=== PATIENT | female | born 1965 | race Caucasian/White ===

== ENCOUNTER → 2017-05-04 17:27 | Outpatient (CLI) | payer MEDICAID, SELFPAY | PROVIDERS: Visit Provider Nurse Practitioner Women's Health | DX: N89.8 Other specified noninflammatory disorders of vagina (principal) | CPT/HCPCS: 87070; 87205 ==

== ENCOUNTER → 2017-05-11 07:40 | Outpatient (CLI) | payer MEDICAID, SELFPAY ==
--- NOTE | 2017-05-11 07:43 | US_ITS ---
STUDY: ULTRASOUND OF THE FEMALE PELVIS - COMPLETE REASON FOR EXAM: Female, 51 years old. Abnormal bleeding LMP: TECHNIQUE: Transabdominal and Transvaginal TECHNICAL QUALITY: Adequate. COMPARISON: None. FINDINGS: The uterus is retroflexed and is in a midline position. The uterus measures 8.5X5.3X3.7 cm. There is a Nabothian cyst of the cervix. The endometrium measures 7.1 mm in thickness, and is hyperechoic. There is no demonstrated endometrial mass. There is no demonstrated myometrial mass. I.U.D. - The patient does not have an I.U.D. The right ovary is visualized. The right ovary measures 3.2X2.5X2.7 cm. There is no right ovarian cyst or ovarian mass. Calcifications visualized in the right ovary. There is normal arterial and normal venous vascularity. The left ovary is visualized. The left ovary measures 3.8X2.4X2.1 cm. There is no left ovarian cyst or ovarian mass. There is no visualized left adnexal mass or complex lesion. There is normal arterial and normal venous vascularity. There is no fluid in the cul-de-sac. Polycystic ovary disease: No. US/Pelvic (Non ) IMPRESSION: There is a thickened endometrial stripe. The patient is postmenopausal this is abnormal. There are Nabothian cysts of the cervix. Electronically Signed: Alan Coleman MD at 16:56 EDT , Service support ,
--- NOTE | 2017-05-11 07:43 | US_ITS ---
STUDY: ULTRASOUND OF THE FEMALE PELVIS - COMPLETE REASON FOR EXAM: Female, 51 years old. Abnormal bleeding LMP: TECHNIQUE: Transabdominal and Transvaginal TECHNICAL QUALITY: Adequate. COMPARISON: None. FINDINGS: The uterus is retroflexed and is in a midline position. The uterus measures 8.5X5.3X3.7 cm. There is a Nabothian cyst of the cervix. The endometrium measures 7.1 mm in thickness, and is hyperechoic. There is no demonstrated endometrial mass. There is no demonstrated myometrial mass. I.U.D. - The patient does not have an I.U.D. The right ovary is visualized. The right ovary measures 3.2X2.5X2.7 cm. There is no right ovarian cyst or ovarian mass. Calcifications visualized in the right ovary. There is normal arterial and normal venous vascularity. The left ovary is visualized. The left ovary measures 3.8X2.4X2.1 cm. There is no left ovarian cyst or ovarian mass. There is no visualized left adnexal mass or complex lesion. There is normal arterial and normal venous vascularity. There is no fluid in the cul-de-sac. Polycystic ovary disease: No. US/Transvaginal Non- IMPRESSION: There is a thickened endometrial stripe. The patient is postmenopausal this is abnormal. There are Nabothian cysts of the cervix. Electronically Signed: Alan Coleman MD at 16:56 EDT , Service support ,
== END ==
PROVIDERS: Visit Provider Nurse Practitioner Women's Health
DX: N92.6 Irregular menstruation, unspecified (principal)
CPT/HCPCS: 76830; 76856; 93976

== ENCOUNTER → 2017-06-06 09:51 | Outpatient (CLI) | payer MEDICAID, SELFPAY ==
--- NOTE | 2017-06-06 | ASPOS_PTH ---
PATIENT: JUNI DENNIS LOC: [facility] U#:[id number] AGE/SX: 59/F ROOM: RE06/06/[address]: Dr. Nj Marsh MD : 1965 BED: DIS: SPEC #: [id number] RECD: 06/06/17 12:19 STATUS: ALESSANDRA KENYA #: [id number] TURNER: 06/06/17 00:[address]: Nj Marsh DEPT: CYTOLOGY RECD BY: Rolo Zurita ENTERED: 06/06/17 12:20 SP TYPE: ASP HERE OTHR DR: Out of Town Doctor Tissues: Neck, NOS Procedures: Surgery Specimen Level IV Cytology Other Fine Needle Asp on Site HEADER OPERATION: FNA left upper mid neck mass PRE-OP DIAGNOSIS: Left upper mid neck mass TISSUE SUBMITTED: FNA left upper mid neck mass, smear and fluid for cytology DIAGNOSIS CYTOLOGY Fine needle aspiration, left upper neck mass (cytospin and cell block): Polymorphous lymphocytes present. No evidence of malignancy. AM:leti 06/07/17 COMMENT The specimen is evaluated at the time of FNA by Dr. Peralta. Immediate Evaluation = Polymorphous lymphocytes present. Immunohistochemistry ([id number]) supports the above diagnosis and reveals mostly small T lymphocytes. A lymphoid malignancy is not identified. Sample for Flow cytometric analysis yielded low viability specimen and phenotyping was not performed. CYTOLOGY STUDY Slides are reviewed. CYTOLOGY GROSS Received is 0.2 ml of reddish-quintero fluid labeled with the patient's name, and designated FNA left upper mid neck mass. Three imprints and two paps are made from the submitted fluid and the rest is added to CytoLyt for cell block preparation. Submitted for cytology study. / AM:leti 06/06/17 TC:5 CPT: 75676, 74694, 36414, 43682
--- NOTE | 2017-06-06 | IMM_PTH ---
PATIENT: JUNI DENNIS LOC: [facility] U#:[id number] AGE/SX: 59/F ROOM: RE06/06/[address]: Dr. Nj Marsh MD : 1965 BED: DIS: SPEC #: [id number] RECD: 06/07/17 12:04 STATUS: ALESSANDRA REKathryn #: [id number] TURNER: 06/06/17 00:[address]: Nj Marsh DEPT: IMMUNOHISTOCHEMISTRY RECD BY: Lima Kohli ENTERED: 06/07/17 12:05 SP TYPE: IMMUNO OTHR DR: Out of Town Doctor Tissues: Neck, NOS Procedures: CD20 (add) CD45 (add) CD5 (add) CD79A (add) CD3 (initial) PHYSICIAN & INSTITUTION [place] [id number] SPECIMEN INFORMATION: Tissue Source: FNA left upper mid neck mass Clinical Info: Left upper mid neck mass Specimen Number: [id number] CPT code: 12331, 76951 x4 METHODOLOGY: Deparaffinized sections of prefer/formalin-fixed tissue or PAP/DQ stained slides are incubated with monoclonal/polyclonal antibodies/oligonucleotide probes. Localization is made via biotin free immunoperoxidase method. Appropriate controls are performed and reacted as expected. Results on target cell population are indicated in the following table: RESULTS: ANTIBODY / CLONE RESULT CD3 (PS1) positive CD5 (SP10) negative CD20 (L26) negative CD45 (RP2/18) positive CD79a (11E3) negative These tests were developed and their performance characteristics determined by [facility]. They may not have been cleared or approved by the U.S. Food and Drug Administration. The FDA has determined that such clearance or approval is not necessary. INTERPRETATION: Left upper mid neck mass, fine needle aspiration: No evidence of lymphoproliferative disorder. AM:leti 06/08/17
== END ==
PROVIDERS: Visit Provider Otolaryngology Otolaryngology/Facial Plastic Surgery
DX: R22.1 Localized swelling, mass and lump, neck (principal)
CPT/HCPCS: 10021; 88161; 88305; 88341; 88342

== ENCOUNTER → 2017-07-13 11:31 | Outpatient (CLI) | payer MEDICAID, SELFPAY | PROVIDERS: PCP Nurse Practitioner Family; Visit Provider Nurse Practitioner Women's Health | DX: N89.8 Other specified noninflammatory disorders of vagina (principal) | CPT/HCPCS: 87070; 87205 ==

== ENCOUNTER 2018-02-17 05:20 | Emergency (ER) | payer BC, SELFPAY ==
[2018-02-17 05:22] VITALS: BP 119/79; PULSE 83; RESP 14; TEMP 36.8; O2SAT 99; BMI 27.8
--- NOTE | 2018-02-17 05:53 | EKG12_ITS ---
Test Reason : Blood Pressure : / mmHG Vent. Rate : 071 BPM Atrial Rate : 071 BPM P-R Int : 166 ms QRS Dur : 094 ms QT Int : 392 ms P-R-T Axes : 041 052 048 degrees QTc Int : 425 ms Normal sinus rhythm Incomplete right bundle branch block Borderline ECG Confirmed by NICOLE DISLA, HAYLEY ([id number]), industrial editor ALBERTINA ABREU ([id number]) on 02/20/2018 8:59:11 AM Referred By: RINA Confirmed By:HAYLEY RIVERA MD
--- NOTE | 2018-02-17 05:53 | RAD_ITS ---
STUDY: X-RAY CHEST REASON FOR EXAM: Female, 52 years old. Palpitations. Tachycardia. TECHNIQUE: Frontal and lateral views of the chest. COMPARISON: None. FINDINGS: The lungs are clear and expanded. There is no demonstrated pleural abnormality. Normal size heart. Normal mediastinum and ta. Normal visualized pulmonary arteries. Normal visualized aortic arch and descending thoracic aorta. There are diffuse degenerative changes of the visualized thoracic spine. There is degenerative osteoarthritis of the bilateral shoulders. There is no demonstrated abnormality of the visualized soft tissue structures of the upper abdomen. RAD/Chest PA and Lateral IMPRESSION: Degenerative changes, as described above. No demonstrated acute cardiopulmonary process. Electronically Signed: Lucila Godinez MD at 7:48 EST Tel , Service support ,
[2018-02-17 06:20] LABS: Absolute Lymphocyte Count 2.35 X10^3/ul (0.83-4.51); Absolute Neutrophil Count 3.6 X10^3/uL (2.0-7.7); Basophil# 0.05 X10^3/uL; Basophil% 0.7 % (0-1); Eosinophil# 0.26 X10^3/uL; Eosinophils% 3.8 % (0-5); Hematocrit 41.7 % (37-47); Hemoglobin 13.8 g/dl (12.0-15.0); Lymphocyte # 2.35 X10^3/ul (4.0); Lymphocyte % 34.3 % (19-41); Mean Corp Hgb Conc 33.1 g/gl (32-36); Mean Corpuscular Hgb 28.6 pg (27.0-32.0); Mean Corpuscular Volume 86.5 fL (81-99); Mean Platelet Vol. 11.1 fl (6.2-12.0); Monocyte# 0.53 X10^3/uL; Monocyte% 7.7 % (0-10); Neutrophil # 3.64 X10^3/uL (2.7-7.7); Neutrophil % 53.2 % (47-70); Platelet Count 243 K/mm3 (150-450); RBC Distribution Width CV 12.9 % (11.6-14.6); RBC Distribution Width SD 39.8 fl (35.1-43.9); Red Blood Count 4.82 M/mm3 (4.2-5.4); White Blood Count 6.9 K/mm3 (4.4-11.0)
[2018-02-17 06:22] LABS: POSITIVE COUNT NO; POSITIVE DIFFERENTIAL NO; POSITIVE MORPHOLOGY NO
--- NOTE | 2018-02-17 06:27 | ED.VISSUMM ---
- ER Visit Summary Date of Service: 02/17/18 Chief Complaint: Short of breath and palpitations History of Present Illness: The patient is a 52 F who presents with shortness of breath. She states this is been occurring for the past 3 days. She felt like her heart was pounding and irregular. She does note increased anxiety over the past 3 days as well. Currently her shortness of breath has improved. She denies a history of similar symptoms. No associated chest pain. No fevers nausea vomiting. No recent travel or surgery no history of DVT or pulmonary embolism. No pain or swelling in the legs. She denies any illicit drug use, stimulant use, recent [id number] medications or significant caffeine use. No history of dysrhythmia Physical Examination: Afebrile vitals are normal Moist mucous membranes Heart regular rate and rhythm Lungs are clear Abdomen soft Extremities nontender without edema Alert Test Results: EKG shows sinus rhythm at a rate of 71 with incomplete right bundle branch block. CBC BMP troponin unremarkable. TSH slightly elevated at 4.34. Chest x-ray on my review shows no acute process, radiology read is pending. Emergency Department Course and Treatment: Patient has remained asymptomatic during her course here in the emergency department. She has maintained a normal sinus rhythm on cardiac monitoring. Her workup is unremarkable as above. She was advised that she may need further follow-up tests for evaluation of hypothyroidism but she does not appear to be hyperthyroid. I also discussed possible need for further outpatient workup such as Holter monitoring. She understands to return for new or worsening symptoms. All questions answered bedside. Patient agreeable to this plan. Patient discharged. Treatment Plan: [] Disposition: Discharge Impression: Palpitations This note was generated with Inside dictation software. It may contain incorrect words, spelling, and punctuation that were not noted in review of the chart prior to signing ED Disposition - Plan for ED Patient: Chief Complaint: Palpitations Referrals: Yamel Beckham NP-C [Primary Care Provider] -
[2018-02-17 06:32] LABS: Anion Gap 9 (5-15); BUN 12 mg/dL (7-18); BUN/Creat Ratio 11.9 RATIO (10-20); Calcium,Total 8.7 mg/dL (8.5-10.1); Chloride 108 mmol/L (98-107); Creatinine, Serum 1.01 mg/dL (0.55-1.02); EST Glomerular Filtration Rate 62 mL/min (>60); Est Glom Filt Rate - Afr Amer 74 mL/min (>60); Estimated Creatinine Clearance 57.54 ml/min; Glucose 94 mg/dL (74-106); Potassium 3.6 mmol/L (3.5-5.1); Sodium Level 143 mmol/L (136-145); Thyroid Stim Hormone (TSH) 4.34 uIU/mL (0.358-3.74)
--- NOTE | 2018-02-17 06:55 | ED.DEP ---
ED Disposition - Plan for ED Patient: Chief Complaint: Palpitations Instructions: ED Palpitations Referrals: Yamel Beckham NP-C [Primary Care Provider] -
[2018-02-17 06:57] VITALS: BP 123/76; PULSE 68; RESP 16; O2SAT 97
== END 2018-02-17 07:03 | disposition home or self-care (01) ==
PROVIDERS: Emergency Provider Emergency Medicine; PCP Nurse Practitioner Family
DX: R00.2 Palpitations (principal)
CPT/HCPCS: 71046; 80048; 84443; 84484; 85025; 93005; 99284; A4216

== ENCOUNTER → 2018-04-23 13:11 | Outpatient (CLI) | payer BC, SELFPAY ==
[2018-04-23 11:41] VITALS: BMI 27.8
--- NOTE | 2018-04-23 12:15 | EMB_PTH ---
PATIENT: JUNI DENNIS LOC: [facility] U#:[id number] AGE/SX: 59/F ROOM: RE04/23/[address]: KIARA Baker : 1965 BED: DIS: SPEC #: [id number] RECD: 04/23/18 13:09 STATUS: ALESSANDRA KENYA #: [id number] TURNER: 04/23/18 12:[address]: Tania Stafford NP DEPT: SURGICAL PATHOLOGY RECD BY: Yumiko Alba ENTERED: 04/23/18 13:35 SP TYPE: ENDOM BX/C LINDSAY DR: KIARA Vance Tissues: Endometrium, NOS Procedures: Surgery Specimen Level IV HEADER OPERATION: Endometrial biopsy PRE-OP DIAGNOSIS: Abnormal uterine bleeding TISSUE SUBMITTED: Endometrial lining MICROSCOPIC DIAGNOSIS Endometrium, biopsy: Proliferative endometrium with focal glandular breakdown. Mild chronic endometritis. Rare fragments of benign superficial endocervix. AM:leti 04/24/18 MICROSCOPIC DESCRIPTION Slides are reviewed. GROSS DESCRIPTION Received is one container labeled with the patient's name and not further designated. The specimen consists of multiple irregular fragments of red-quintero soft tissue that in aggregate measure 2.6 x 2 x 0.1 cm. The specimen is totally submitted in one cassette. / AM:leti 04/23/18 TC:3 CPT: 75760
== END ==
PROVIDERS: PCP Nurse Practitioner Family; Referring Provider Nurse Practitioner Women's Health; Visit Provider Nurse Practitioner Women's Health
DX: N71.1 Chronic inflammatory disease of uterus (principal); N93.9 Abnormal uterine and vaginal bleeding, unspecified
CPT/HCPCS: 88305

== ENCOUNTER → 2018-12-04 12:42 | Outpatient (CLI) | payer BC, SELFPAY ==
[2018-12-04 09:15] VITALS: BMI 27.8
[2018-12-06 15:34] LABS: HPV APTIMA, High Risk Negative (Negative)
== END ==
PROVIDERS: Family Provider Nurse Practitioner Family; PCP Nurse Practitioner Family; Referring Provider Nurse Practitioner Women's Health; Visit Provider Nurse Practitioner Women's Health
DX: Z12.4 Encounter for screening for malignant neoplasm of cervix (principal)
CPT/HCPCS: 87624; 88175; G0145

== ENCOUNTER → 2018-12-13 12:02 | Outpatient (CLI) | payer BC, SELFPAY ==
[2018-12-04 09:15] VITALS: BMI 27.8
--- NOTE | 2018-12-13 12:04 | US_ITS ---
STUDY: ULTRASOUND OF THE FEMALE PELVIS - COMPLETE REASON FOR EXAM: Female, 53 years old. Irregular menses. LMP: November 17, 2018. TECHNIQUE: Transabdominal and Transvaginal TECHNICAL QUALITY: Adequate. COMPARISON: Comparison is made with prior examination imaged May 11, 2017. FINDINGS: The uterus is anteverted and is in a midline position. The uterus measures 9.6 cm x 5.1 cm x 4.1 cm. There is a Nabothian cyst of the cervix. The endometrium measures 9.0 mm in thickness, and is hyperechoic. There is no demonstrated endometrial mass. There is no demonstrated myometrial mass. I.U.D. - The patient does not have an I.U.D. The right ovary is visualized. The right ovary measures 3.6 cm x 2.27 x 2.3 cm. There is no right ovarian cyst or ovarian mass. There is no visualized right adnexal mass or complex lesion. There is normal arterial and normal venous vascularity. The left ovary is visualized. The left ovary measures 2.6 cm x 1.9 cm x 1.8 cm. There is no left ovarian cyst or ovarian mass. There is no visualized left adnexal mass or complex lesion. There is normal arterial and normal venous vascularity. There is no fluid in the cul-de-sac. The pre void volume of the bladder was 127 ml. Polycystic ovary disease: No. US/Pelvic (Non ) IMPRESSION: Normal female pelvis. Electronically Signed: Raf Small, at 10:27 EDT , Service support ,
--- NOTE | 2018-12-13 12:04 | US_ITS ---
STUDY: ULTRASOUND OF THE FEMALE PELVIS - COMPLETE REASON FOR EXAM: Female, 53 years old. Irregular menses. LMP: November 17, 2018. TECHNIQUE: Transabdominal and Transvaginal TECHNICAL QUALITY: Adequate. COMPARISON: Comparison is made with prior examination imaged May 11, 2017. FINDINGS: The uterus is anteverted and is in a midline position. The uterus measures 9.6 cm x 5.1 cm x 4.1 cm. There is a Nabothian cyst of the cervix. The endometrium measures 9.0 mm in thickness, and is hyperechoic. There is no demonstrated endometrial mass. There is no demonstrated myometrial mass. I.U.D. - The patient does not have an I.U.D. The right ovary is visualized. The right ovary measures 3.6 cm x 2.27 x 2.3 cm. There is no right ovarian cyst or ovarian mass. There is no visualized right adnexal mass or complex lesion. There is normal arterial and normal venous vascularity. The left ovary is visualized. The left ovary measures 2.6 cm x 1.9 cm x 1.8 cm. There is no left ovarian cyst or ovarian mass. There is no visualized left adnexal mass or complex lesion. There is normal arterial and normal venous vascularity. There is no fluid in the cul-de-sac. The pre void volume of the bladder was 127 ml. Polycystic ovary disease: No. US/Transvaginal Non- IMPRESSION: Normal female pelvis. Electronically Signed: Raf Small, at 10:27 EDT , Service support ,
[2018-12-13 14:20] LABS: Follicle Stimulating Hormone 3.4 mIU/mL
== END ==
PROVIDERS: PCP Nurse Practitioner Family; Referring Provider Nurse Practitioner Women's Health; Visit Provider Nurse Practitioner Women's Health
DX: N92.6 Irregular menstruation, unspecified (principal)
CPT/HCPCS: 36415; 76830; 76856; 83001

== ENCOUNTER → 2019-10-08 16:25 | Outpatient (CLI) | payer BC, SELFPAY ==
--- NOTE | 2019-10-08 15:10 | EMB_PTH ---
PATIENT: JUNI DENNIS LOC: [facility] U#:[id number] AGE/SX: 59/F ROOM: RE10/08/[address]: Dr. Jessica Warren MD : 1965 BED: DIS: SPEC #: [id number] RECD: 10/08/19 16:10 STATUS: ALESSANDRA REKathryn #: [id number] TURNER: 10/08/19 15:[address]: Jessica Warren DEPT: SURGICAL PATHOLOGY RECD BY: Rolo Zurita ENTERED: 10/09/19 09:30 SP TYPE: ENDOM BX/C OT DR: No Primary Care Phys Tissues: Endometrium, NOS Procedures: Surgery Specimen Level IV HEADER OPERATION: Endometrial biopsy PRE-OP DIAGNOSIS: Abnormal uterine bleeding TISSUE SUBMITTED: Endometrial lining MICROSCOPIC DIAGNOSIS Endometrial biopsy: Proliferative endometrium. EDIL:leti 10/10/19 MICROSCOPIC DESCRIPTION Slides are reviewed. GROSS DESCRIPTION Received is one container labeled with the patient's name and not further designated. The specimen consists of multiple irregular fragments of quintero mucoid tissue that in aggregate measure 1 x 1 x 0.1 cm. The specimen is totally submitted in one cassette. / SJ:leti 10/09/19 TC:4 CPT: 98073
[2019-10-08 15:30] VITALS: BMI 20.9
== END ==
PROVIDERS: Referring Provider Obstetrics & Gynecology; Visit Provider Obstetrics & Gynecology
DX: N93.9 Abnormal uterine and vaginal bleeding, unspecified (principal); R30.0 Dysuria
CPT/HCPCS: 87086; 87088; 88305

== ENCOUNTER → 2020-08-25 10:05 | Outpatient (CLI) | payer BC, SELFPAY ==
[2019-10-08 15:30] VITALS: BMI 20.9
[2020-08-27 20:11] LABS: Red Blood Cell Count Test/G6PD 4.82 x10E6/uL (3.77-5.28)
[2020-08-28 08:19] LABS: G6PD Quant Test 259 (127-427)
== END ==
PROVIDERS: Referring Provider Nurse Practitioner Family; Visit Provider Nurse Practitioner Family
DX: M79.10 Myalgia, unspecified site (principal); F41.9 Anxiety disorder, unspecified; R51.9 Headache, unspecified; R79.82 Elevated C-reactive protein (CRP); E63.9 Nutritional deficiency, unspecified; B27.00 Gammaherpesviral mononucleosis without complication; M54.5 Low back pain; M99.04 Segmental and somatic dysfunction of sacral region; N62 Hypertrophy of breast; D05.02 Lobular carcinoma in situ of left breast; Z85.3 Personal history of malignant neoplasm of breast; K21.9 Gastro-esophageal reflux disease without esophagitis; R06.00 Dyspnea, unspecified
CPT/HCPCS: 36415; 82955

== ENCOUNTER → 2020-10-15 10:02 | Outpatient (CLI) | payer BC, SELFPAY ==
--- NOTE | 2020-10-15 10:08 | BD_ITS ---
STUDY: DUAL ENERGY X-RAY ABSORPTIOMETRY / DXA REASON FOR EXAM: Female, 55 years old. V76.12ScreeningBONE DENSITY REASON FOR EXAM -- OSTEO TECHNIQUE: Bone Mineral Density (BMD) measurements of lumbar spine and bilateral hips were obtained. COMPARISON: None. FINDINGS: Lumbar Spine (L1-L4): g/cm2 (0.995) / T-score (-0.5) / Z-score (0.5) Findings are suggestive of normal bone density with a low fracture risk. Left Femur Total: g/cm2 (0.858) / T-score (-0.7) / Z-score (-0.1) Left Femoral Neck: g/cm2 (0.775) / T-score (-0.7) / Z-score (0.3) Right Femur Total: g/cm2 (0.823) / T-score (-1.0) / Z-score (-0.4) Right Femoral Neck: g/cm2 (0.657) / T-score (-1.7) / Z-score (-0.8) BD/Dexa Bone Density Study IMPRESSION: The patient is considered osteopenic as outlined below according to World Lance Organization (WHO) criteria with a moderate fracture risk. Reference Information: The T-score is the number of standard deviations above or below the standard which is normal for young adults at their peak bone mineral density. The World Health Organization (WHO) interprets the T-scores as follows: Above -1 Normal bone density Between -1 and -2.5 Osteopenia Equal to / or below -2.5 Osteoporosis As a practical clinical guideline, osteopenia may be graded as follows: Mild -1 through -1.5 Moderate -1.6 through -2.0 Severe -2.1 through -2.4 The Z-score is the number of standard deviations above or below age-matched controls. A Z-score of less than -1.5 would be considered abnormal. References: 1. NIH Osteoporosis and Related Bone Diseases www osteo.org 2. International Society for Clinical Densitometry www iscd.org 3. National Osteoporosis Foundation www nof.org Electronically Signed: Raf Small MD at 15:09 EDT , Service support ,
== END ==
DX: Z13.820 Encounter for screening for osteoporosis (principal)
CPT/HCPCS: 77080

== ENCOUNTER → 2022-01-24 | Outpatient (CLI) | payer BC, SELFPAY ==
--- NOTE | 2022-01-24 | FLU_PTH ---
PATIENT: JUNI DENNIS LOC: [facility] U#:[id number] AGE/SX: 56/F ROOM: RE01/24/[address]: Dr. Corby Angelo MD : 1965 BED: DIS: 01/24/2022 SPEC #: [id number] RECD: 01/24/22 13:17 STATUS: ALESSANDRA ZAMBRANO #: [id number] TURNER: 01/24/22 00:[address]: Corby Angelo DEPT: CYTOLOGY RECD BY: Heriberto Olivier Tissues: A - Thyroid gland, NOS B - Thyroid gland, NOS Procedures: Special Stain Group II Surgery Specimen Level IV Cytospin Fluid HEADER OPERATION: Fine needle aspiration, left inferior thyroid nodule PRE-OP DIAGNOSIS: Multiple thyroid nodules TISSUE SUBMITTED: A - Left inferior thyroid nodule fluid, B - Left inferior thyroid nodule x6 slides DIAGNOSIS CYTOLOGY A. Left inferior thyroid nodule fluid, fine needle aspiration (cytospin and cell block): Clusters of follicular cells with minimal atypia noted. See comment. B. Left inferior thyroid nodule, fine needle aspiration (smears): Atypical follicular cells of undetermined significance (Blue Category III). Adequate for evaluation. See comment. SJ:leti 01/25/2022 COMMENT A & B. A few macrophages are also noted consistent with focal cystic changes in the nodule. Correlation with clinical, radiologic findings and appropriate follow up are necessary. Case has been reviewed in consultation with Dr. Peralta who concurs with the above diagnosis. IDC:AM CYTOLOGY STUDY Slides are reviewed. CYTOLOGY GROSS A - Received is 35 ml of dark red cloudy fluid labeled with the patient's name and and designated per the requisition as left inferior thyroid nodule. Submitted for cytology preparation including cell block. B - Received are six smears labeled with the patient's name and designated per the requisition as left inferior thyroid nodule. Submitted for staining. / leti 01/24/2022 TC:5 CPT: 45442 x2, 02875
== END | disposition home or self-care (01) ==
LOC: LABSPEC 12:46
PROVIDERS: Referring Provider Surgery; Visit Provider Surgery
DX: E04.2 Nontoxic multinodular goiter (principal)
CPT/HCPCS: 88108; 88305; 88313

== ENCOUNTER → 2022-01-25 | Outpatient (CLI) | payer BC, SELFPAY ==
[2022-01-25 14:11] LABS: Calcium,Total 8.5 mg/dL (8.5-10.1); Free T3 2.6 pg/mL (2.18-3.98); T4 Total, Thyroxin 7.5 ug/dL (4.8-13.9); Thyroid Stim Hormone (TSH) 3.29 uIU/mL (0.358-3.74)
== END | disposition home or self-care (01) ==
PROVIDERS: Visit Provider Surgery
DX: E21.3 Hyperparathyroidism, unspecified (principal); E04.2 Nontoxic multinodular goiter
CPT/HCPCS: 36415; 82310; 84436; 84443; 84481